=== PATIENT | male | born 1955 | race Caucasian/White ===

== ENCOUNTER 2016-11-28 16:57 | Inpatient (IN) | payer OTHER ==
[~2016-11-28] VITALS: Ht 167.6 cm; Wt 100.5 kg
[2016-11-28 18:00] LABS: ANION GAP 12 MEQ/L (2-14); CHLORIDE 101 mEq/L (99-109); CREATININE 0.8 mg/dL (0.6-1.3); GLUCOSE 123 mg/dL (70-99); ISTAT DEVICE 369301; POTASSIUM > 6.0 mEq/L (3.7-5.4); SODIUM 133 mEq/L (136-147); UREA NITROGEN (BUN) 23 mg/dL (9-23)
[2016-11-28 18:00] LABS: HEMATOCRIT 48.2 % (38.0-50.0); MCH 30.3 PG (29.0-34.0); MCHC 36.3 G/DL (30.0-36.0); RBC DIS.WIDTH-CV 12.4 % (11.8-14.6); RBC DIS.WIDTH-SD 37.4 % (39-53); RED BLOOD COUNT 5.77 M/uL (4.00-5.50)
[2016-11-28 18:03] LABS: CHLORIDE 99 mEq/L (99-109); POTASSIUM 5.4 mEq/L (3.7-5.4); SODIUM 134 mEq/L (136-147)
[2016-11-28 18:06] LABS: GLUCOSE 124 mg/dL (70-99)
[2016-11-28 18:07] LABS: ANION GAP 14 MEQ/L (2-14)
[2016-11-28 18:08] LABS: TOTAL BILIRUBIN 1.6 mg/dL (0.0-1.0)
[2016-11-28 18:09] LABS: ALKALINE PHOSPHATASE 69 IU/L (3-129); GFR ESTIMATE (CALCULATED) > 59 mL/min/
[2016-11-28 18:10] LABS: UREA NITROGEN (BUN) 15 mg/dL (9-23)
[2016-11-28 18:13] LABS: LIPASE 13 U/L (1.0-51.0)
[2016-11-28 18:16] LABS: POTASSIUM 5.4 MEQ/L (3.7-5.4)
[2016-11-28 18:23] LABS: MCV 83.5 FL (86-99)
[2016-11-28 18:43] LABS: PLATELET COUNT 30 K/uL (156-360)
[2016-11-28] MEDS ORDERED: LISINOPRIL10 MG PO (19:24)
[2016-11-28] MEDS ORDERED: VISINE TEARS DR30 ML RIGHT EYE (19:26)
[2016-11-28 21:15] VITALS: BP 134/81
[2016-11-29] VITALS (7 sets, daily range): BP systolic 130–1214; BP diastolic 64–83
[2016-11-29 07:31] LABS: ANION GAP 7 MEQ/L (2-14); CHLORIDE 103 MEQ/L (99-109); GFR ESTIMATE (CALCULATED) > 59 mL/min/; GLUCOSE 147 mg/dL (70-99); SAMPLE HEMOLYSIS CHECK 0; SAMPLE ICTERIC CHECK 0; SAMPLE LIPEMIA CHECK 0; SODIUM 136 MEQ/L (136-147); UREA NITROGEN (BUN) 16 mg/dL (9-23)
[2016-11-29 07:33] LABS: POTASSIUM 4.3 MEQ/L (3.7-5.4)
[2016-11-29 07:41] LABS: HEMATOCRIT 43.5 % (38.0-50.0); MCH 30.7 PG (29.0-34.0); MCHC 34.3 G/DL (30.0-36.0); MEAN PLAT.VOLUME 12.3 uM^3 (9.0-12.4); PLATELET COUNT 36 K/uL (156-360); RBC DIS.WIDTH-CV 12.7 % (11.8-14.6); RBC DIS.WIDTH-SD 41.1 % (39-53); RED BLOOD COUNT 4.85 M/uL (4.00-5.50)
[2016-11-29 07:42] LABS: MCV 89.7 FL (86-99); WHITE BLOOD COUNT 15.1 K/uL (4.1-10.2)
[2016-11-30 03:37] VITALS: BP 164/92
[2016-11-30 08:32] VITALS: BP 165/91
[2016-11-30 09:41] LABS: ANION GAP 10 MEQ/L (2-14); CHLORIDE 104 MEQ/L (99-109); POTASSIUM 3.4 MEQ/L (3.7-5.4); SAMPLE HEMOLYSIS CHECK 0; SAMPLE ICTERIC CHECK 0; SAMPLE LIPEMIA CHECK 0; SODIUM 142 MEQ/L (136-147)
[2016-11-30 09:45] LABS: GFR ESTIMATE (CALCULATED) > 59 mL/min/; UREA NITROGEN (BUN) 17 mg/dL (9-23)
[2016-11-30 09:46] LABS: GLUCOSE 90 mg/dL (70-99)
[2016-11-30 10:38] LABS: HEMATOCRIT 43.2 % (38.0-50.0); MCH 30.8 PG (29.0-34.0); MCHC 34.5 G/DL (30.0-36.0); MCV 89.4 FL (86-99); PLATELET COUNT 51 K/uL (156-360); RBC DIS.WIDTH-CV 12.9 % (11.8-14.6); RBC DIS.WIDTH-SD 41.8 % (39-53); RED BLOOD COUNT 4.83 M/uL (4.00-5.50); WHITE BLOOD COUNT 10.2 K/uL (4.1-10.2)
[2016-11-30] MEDS ORDERED: ENDOCET 5-3251 EACH PO (13:42)
[2016-11-30] MEDS ORDERED: AUGMENTIN875 MG PO (13:46)
[2016-11-30 15:39] VITALS: BP 163/90
[2016-11-30 15:41] VITALS: BP 100/66
== END 2016-11-30 16:58 | disposition home or self-care (01) | DRG 854 ==
LOC: EME 16:57 → 2EAST 20:17 → EDOF 20:17 → 2EAST 23:55
PROVIDERS: Emergency Medicine; Surgery
PROC: 30233R1 Transfusion of Nonautologous Platelets into Peripheral Vein, Percutaneous Approach (ICD-10-PCS; principal; 2016-11-28)
PROC: 0DTJ0ZZ Resection of Appendix, Open Approach (ICD-10-PCS; principal; 2016-11-28)
DX: A41.9 Sepsis, unspecified organism (principal); K35.80 Unspecified acute appendicitis; E87.5 Hyperkalemia; D69.6 Thrombocytopenia, unspecified; E66.9 Obesity, unspecified; I10 Essential (primary) hypertension
CPT/HCPCS: 74177; 80047; 80048; 80053; 81003; 83690; 84999; 85027; 86850; 86900; 86901; 87070; 87075; 87205; 88304; 99281; 99285; J0131; J0330; J1100; J1170; J2270; J2405; J2543; J2710; J3010; J7030; J7050; J7120; P9035; S0020